=== PATIENT | female | born 1990 | race American Indian/Alaskan Native ===

== ENCOUNTER 2021-05-03 23:24 | Emergency (ER) | payer SELFPAY ==
[2021-05-04 01:21] VITALS: BP 105/71
[2021-05-04 01:55] LABS: Basophils # (Auto) 0.1 K/mm3 (0.0-0.1); Basophils % (Auto) 0.8 % (0.0-1.8); Eosinophils # (Auto) 0.7 K/mm3 (0.0-0.4); Eosinophils % (Auto) 7.6 % (0.0-4.3); Hematocrit 36.7 % (30.3-42.9); Hemoglobin 12.5 gm/dl (10.1-14.3); Lymphocytes % (Auto) 30.3 % (13.4-35.0); Mean Corpuscular HGB Conc 34 % (30-34); Mean Corpuscular Volume 84 fl (79-97); Monocytes # (Auto) 0.7 K/mm3 (0.0-0.8); Monocytes % (Auto) 7.2 % (0.0-7.3); Platelet Count 321 K/mm3 (140-440); Red Blood Count 4.35 M/mm3 (3.65-5.03); Red Cell Distribution Width 14.1 % (13.2-15.2)
--- NOTE | 2021-05-04 01:59 | Event Note ---
ED Screening Note Date of service: 05/04/21 Time: 01:55 ED Screening Note: Patient is a 31-year-old -[place] female with no past medical history presents to the ED with complaint of acute onset persistent rectal bleeding with bright red blood for the last 3 days. Patient states that each time she had a bowel movement she noticed bright red blood with mild rectal pain. Patient denies dizziness, syncope, abdominal pain, lightheadedness, nausea, vomiting, dysuria, urinary frequency and urgency, constipation, diarrhea, fever and chills. This initial assessment/diagnostic orders/clinical plan/treatment(s) is/are subject to change based on patients health status, clinical progression and re- assessment by fellow clinical providers in the ED. Further treatment and workup at subsequent clinical providers discretion. Patient/guardian urged not to elope from the ED as their condition may be serious if not clinically assessed and managed. Initial orders include: CBC, CMP, UA, hCG serum, occult blood
[2021-05-04 02:18] LABS: Alanine Aminotransferase 24 units/L (7-56); Albumin 4.2 g/dL (3.9-5); BUN/Creatinine Ratio 15; Blood Urea Nitrogen 12 mg/dL (7-17); Calcium 9.3 mg/dL (8.4-10.2); Hemolysis Index 12
--- NOTE | 2021-05-04 02:40 | Emergency Department Report ---
HPI - General Chief Complaint: Rectal Pain Time Seen by Provider: 05/04/21 02:29 - HPI HPI: Waiting room/triage 3 The patient is a 30-year-old female present with a chief complaint of rectal bleeding. The patient states for the past 3 days she has had rectal bleeding with her bowel movements. Patient denies any previous episodes. Patient denies rectal pain during her bowel movement. Patient denies nausea/vomiting. Patient denies history of fever. Patient denies any direct rectal trauma. ED Past Medical Hx - Past Medical History Previous Medical History?: No - Surgical History Past Surgical History?: No - Family History Family history: no significant - Social History Smoking Status: Never Smoker Substance Use Type: None (Denies illicit drug use), Alcohol (Rarely) - Medications Home Medications: Home Medications Medication Instructions Recorded Confirmed Last Taken Type Hydrocortisone [Anucort-HC SUPPOS] 25 mg RC BID #10 supp.rect 05/04/21 Unknown Rx ED Review of Systems ROS: Stated complaint: BLOOD IN STOOL Other details as noted in HPI Constitutional: denies: fever Eyes: denies: eye pain ENT: denies: throat pain Respiratory: no symptoms reported Cardiovascular: denies: chest pain Endocrine: no symptoms reported Gastrointestinal: hematochezia. denies: abdominal pain, nausea, vomiting Genitourinary: denies: dysuria Musculoskeletal: denies: back pain Neurological: denies: headache Physical Exam - Physical Exam Vital Signs: Vital Signs 05/04/21 01:20 Pulse Rate 82 Respiratory 18 Rate Blood Pressure 105/71 O2 Sat by Pulse 99 Oximetry Physical Exam: GENERAL: The patient is well-developed well-nourished female sitting on stretcher not appearing to be in acute distress. [] HEENT: Normocephalic. Atraumatic. Extraocular motions are intact. Patient has moist mucous membranes. NECK: Supple. Trachea midline CHEST/LUNGS: Clear to auscultation. There is no respiratory distress noted. HEART/CARDIOVASCULAR: Regular. There is no tachycardia. There is no gallop rub or murmur. ABDOMEN: Abdomen is soft, nontender. Patient has normal bowel sounds. There is no abdominal distention. SKIN: There is no rash. There is no edema. There is no diaphoresis. NEURO: The patient is awake, alert, and oriented. The patient is cooperative. The patient has no focal neurologic deficits. The patient has normal speech and gait. GCS 15 MUSCULOSKELETAL: There is no evidence of acute injury. RECTAL: No external hemorrhoids seen. Guaiac positive brown stool ED Course Vital Signs 05/04/21 01:20 Pulse Rate 82 Respiratory 18 Rate Blood Pressure 105/71 O2 Sat by Pulse 99 Oximetry - Reevaluation(s) Reevaluation #1: 05/04/21 03:13 Patient not orthostatic. See nursing notes ED Medical Decision Making - Lab Data Result diagrams: 05/04/21 01:42 05/04/21 01:42 Laboratory Tests 05/04/21 05/04/21 05/04/21 01:42 01:42 01:42 WBC 9.8 RBC 4.35 Hgb 12.5 Hct 36.7 MCV 84 MCH 29 MCHC 34 RDW 14.1 Plt Count 321 Lymph % (Auto) 30.3 Spink % (Auto) 7.2 Eos % (Auto) 7.6 H Baso % (Auto) 0.8 Lymph # (Auto) 3.0 Spink # (Auto) 0.7 Eos # (Auto) 0.7 H Baso # (Auto) 0.1 Seg Neutrophils % 54.1 Seg Neutrophils # 5.3 Sodium 138 Potassium 3.9 Chloride 104.3 Carbon Dioxide 25 Anion Gap 13 BUN 12 Creatinine 0.8 Estimated GFR > 60 BUN/Creatinine Ratio 15 Glucose 99 Calcium 9.3 Total Bilirubin 0.20 AST 17 ALT 24 Alkaline Phosphatase 86 Total Protein 7.5 Albumin 4.2 Albumin/Globulin Ratio 1.3 HCG, Qual Negative - Differential Diagnosis Internal hemorrhoids, external hemorrhoids, anal fissure, colonic mass Critical care attestation.: If time is entered above; I have spent that time in minutes in the direct care of this critically ill patient, excluding procedure time. ED Disposition Clinical Impression: Rectal bleeding Disposition: 01 HOME / SELF CARE / HOMELESS Is pt being admited?: No Does the pt Need Aspirin: No Condition: Stable Instructions: Rectal Bleeding Additional Instructions: Return to the emergency department should you develop worsening symptoms, inability to tolerate food or liquids, high fever or any other concerns Prescriptions: Hydrocortisone [Anucort-HC SUPPOS] 25 mg RC BID #10 supp.rect Referrals: KOJO AYALA MD [Staff Physician] - [facility] (Dr. Ayala is a senior mechanical designer. Please follow-up with him for further evaluation) Time of Disposition: 03:13
== END 2021-05-04 03:30 | disposition home or self-care (01) ==
LOC: ED 23:24
DX: K62.5 Hemorrhage of anus and rectum (principal); Z79.899 Other long term (current) drug therapy
CPT/HCPCS: 36415; 80053; 82271; 84703; 85025